=== PATIENT | male | born 1960 | race American Indian/Alaskan Native ===

== ENCOUNTER 2017-03-20 10:43 | Outpatient (CLI) | payer OTHER ==
--- NOTE | 2017-03-20 15:12 | Vascular Lab Report ---
LOWER EXTREMITY VENOUS DUPLEX: REASON FOR EXAM: Edema of the lower extremities. COMMENTS ON THE RIGHT: All veins visualized are freely compressible without evidence of internal echogenicity. Flow is spontaneous and phasic throughout. COMMENTS ON THE LEFT: All veins visualized are freely compressible without evidence of internal echogenicity. Flow is spontaneous and phasic throughout. IMPRESSION: No evidence of acute or chronic deep venous thrombosis in either lower extremity.
== END 2017-03-20 10:44 | disposition home or self-care (01) ==
LOC: VAS 10:43
DX: I10 Essential (primary) hypertension (principal); R60.9 Edema, unspecified
CPT/HCPCS: 93970

== ENCOUNTER 2019-08-24 06:21 | Emergency (ER) | payer MEDICARE, OTHER ==
[2019-08-24] MEDS ORDERED: EPINEPHrine 1:10,000 1 MG/10 ML SYRINGE ONE (06:30)
[2019-08-24] MEDS ORDERED: SODIUM BICARB 8.4% 50 MEQ/50 ML SYRINGE IV ONE (06:30)
--- NOTE | 2019-08-24 06:31 | Emergency Department Report ---
ED CPR HPI - General Stated Complaint: CARDIAC ARREST Time Seen by Provider: 08/24/19 06:21 - History of Present Illness Initial Comments: Patient is a 59-year-old male that presents emergency room with cardiac arrest. Report received from EMS. EMS states that approximately 3045 minutes ago the patient was walking to the bathroom and went down. The son then noticed there was no pulse and started CPR. EMS arrived and patient with a Patel tube. CPR continued with a Long machine. Epi was given by EMS. EMS states they have not had any return of circulation. MD Complaint: found unresponsive, collapsed during activity -: minute(s) Place: home Bystander CPR Performed: Yes AED Applied by Bystander/Ciaio Lumite Injector: No Shock Advised: No Initial Findings in the Field: unresponsive, no respirations, no pulse ROSC in the Field: No Associated Injuries: No Treatments Prior to Arrival: intubation, BMV, other airway device, chest compressions, epinephrine mgs # - Related Data Allergies Allergy/AdvReac Type Severity Reaction Status Date / Time No Known Allergies Allergy Unverified 02/23/14 15:11 ED Review of Systems ROS: Stated complaint: CARDIAC ARREST Other details as noted in HPI Comment: Unobtainable due to pts medical conditions ED Past Medical Hx - Past Medical History Previous Medical History?: Yes Hx Hypertension: Yes Hx Diabetes: Yes (no meds x6 months) - Surgical History Past Surgical History?: No - Family History Family history: no significant - Social History Smoking Status: Current Every Day Smoker Substance Use Type: None ED Physical Exam - General Limitations: Altered Mental Status, Physical Limitation General appearance: other - Head Head exam: Present: atraumatic, normocephalic - Eye Eye exam: Present: other (pupils fixed and dialated. ) - ENT ENT exam: Present: mucous membranes dry - Neck Neck exam: Present: normal inspection - Respiratory Respiratory exam: Present: normal lung sounds bilaterally (pt intubated with patel tube. placement verified.). Absent: respiratory distress, wheezes - Cardiovascular Cardiovascular Exam: Present: other - GI/Abdominal GI/Abdominal exam: Present: soft - Rectal Rectal exam: Present: deferred - Extremities Exam Extremities exam: Present: normal inspection (rigth lower ext IO) - Neurological Exam Neurological exam: Present: altered - Skin Skin exam: Present: warm, dry. Absent: rash ED Course - Reevaluation(s) Reevaluation #1: Patient arrive via EMS. Patient is ventilated with BVM and Patel tube. Patient has bilateral breath sounds. Pupils are fixed and dilated. Report received from EMS. EMS is given the patient epi. Down time was approximately 30-45 min utes. CPR continued. 08/24/19 06:20 Reevaluation #2: Resuscitation efforts discontinued due to no signs of life. No pulse noted. No cardiac motion noted. No respiratory effort noted. See code note. Code ran in accordance with ACLS guidelines. 08/24/19 06:30 Reevaluation #3: family meeting done. family support given. 08/24/19 06:39 ED Medical Decision Making - Medical Decision Making Patient is a 59-year-old male that since emergency room with cardiac arrest. Resuscitation efforts terminated due to no signs of life. Family support given. - Differential Diagnosis cardiac arrest. Critical Care Time: Yes Critical care time in (mins) excluding proc time.: 35 Critical care attestation.: If time is entered above; I have spent that time in minutes in the direct care of this critically ill patient, excluding procedure time. Critical Care Time: 35 minutes ED Disposition Clinical Impression: Cardiac arrest Disposition: DC-20 Is pt being admited?: No Does the pt Need Aspirin: No Condition: Undetermined Referrals: PRIMARY CARE, [Primary Care Provider] - 3-5 Days Time of Disposition: 06:39
== END 2019-08-24 13:50 ==
LOC: ED 06:21
DX: I46.9 Cardiac arrest, cause unspecified (principal); I10 Essential (primary) hypertension; E11.9 Type 2 diabetes mellitus without complications; F17.200 Nicotine dependence, unspecified, uncomplicated
CPT/HCPCS: 92950; 99291; J0171